=== PATIENT | female | born 1945 | race Caucasian/White ===

== ENCOUNTER 2016-09-01 13:28 | Outpatient (RCR) | payer MEDICARE ==
--- OUTSIDE RECORDS SUMMARY | 2016-06-09 14:57 | XMS REPORT | Continuity of Care Document ---
Author Author [facility] Organization [facility] Address Unknown Phone Unavailable Care Team Providers Care Respiratory Director Name Role Phone JENNIFER SANCHEZ MD PCP Insurance Providers Payer Name Policy Number Subscriber Name Relationship [employer] Gold Choice [id number] Aydin Muller 20 Self / Same As Patient Advance Directives Directive Response Recorded Date/Time Advance Directives No 08/15/15 2:40pm Health Care Power of Hydro Station Supervisor No 08/15/15 2:40pm Organ Donor No 08/15/15 2:40pm Resuscitation Status Full Code 08/15/15 2:40pm Problems Active Problems Medical Problem Onset Date Status Headache Unknown Acute Medications Current Home Medications Medication Dose Units Route Directions Days/Qty Instructions Start Date Acetam/Butalbital/Caffeine/Codeine 1 Cap 1 Each Oral Q 4 - 6 Hrs Prn 08/17/11 Bumetanide 1 Mg 90 02/02/14 Roflumilast 500 Mcg 90 02/02/14 Atorvastatin Calcium 80 Mg 30 02/02/14 Albuterol 8.5 Gm 25 02/02/14 [Symbicort] 30 02/02/14 Tiotropium [place] 1 Inh 90 02/02/14 Sennosides/Docusate Sodium 1 Each 1 Each Oral Twice A Day 08/04/15 Aspirin 81 Mg 81 Mg Oral Daily 08/04/15 Vit C/Ascorbate Ca/Ascorb Sod 500 Mg/15 Ml 1,000 Mg Oral Daily 08/03 Vit D3 & K/[place]ine Hcl/Hops 1 Each 1 Each Oral Daily 08/04/15 Dronabinol 2.5 Mg 2.5 Mg Oral Twice A Day 08/04/15 Iron Polysaccharide Complex 150 Mg 150 Mg Oral Bedtime 08/04/15 Doxylamine Succinate 25 Mg 25 Mg Oral Bedtime 08/04/15 Vit B12/Fa/Pyridoxine Hcl/Aa15 1 Each 1 Each Oral Bedtime 08/04/15 Past Home Medications Medication Directions Ordered Status Nebivolol Hcl 20 Mg Tablet, 20 Mg Oral Daily 08/17/11 Discontinued Rizatriptan Benzoate 10 Mg Tablet, 0 Oral As Directed 09/01/13 Discontinued Nisoldipine 17 Mg Tab.sr.24h, 02/02/14 Discontinued Pantoprazole Sodium 40 Mg Tablet., 02/02/14 Discontinued [Symbicort] , 02/02/14 Discontinued Social History Social History Problem Response Recorded Date/Time Alcohol Use Denies Use 02/02/2014 11:49am Recreational Drug Use No 02/02/2014 11:49am Recent Foreign Travel No 08/13/2015 2:29pm Smoking Status Current Everyday Smoker 08/13/2015 2:23pm Do you dip or chew tobacco? No 08/04/2015 4:15pm Query Response Start Date Stop Date Smoking Status Current Everyday Smoker Hospital Discharge Instructions Current inpatient/outpatient. Discharge instructions are currently unavailable. Plan of Care Prescriptions Functional Status No functional status results. Allergies, Adverse Reactions, Alerts No known allergies. Immunizations Name Given Type Date of Influenza Vaccine 01/31/14 Historical Vital Signs Acute Vital Signs Vital Response Date/Time Temperature (Fahrenheit) 98.0 degrees F (97.6 - 99.5) 10/29/2015 3:58pm Temperature (Calculated Celsius) 36.70189 degrees C (36.4 - 37.5) 10/29/2015 3:58pm Temperature Source Temporal 10/29/2015 3:58pm Pulse Rate (adult) 68 bpm (60 - 90) 10/29/2015 3:58pm Respiratory Rate 16 bpm (12 - 24) 10/29/2015 3:58pm Blood Pressure 187/90 mm Hg 10/29/2015 3:58pm Pain Numeric Pain Scale 0-No Pain 10/29/2015 3:58pm Height (Feet) 5 feet 10/29/2015 3:58pm Height (Inches) 5.00 inches 10/29/2015 3:58pm Height (Calculated Centimeters) 165.874995 cm 10/29/2015 3:58pm Weight (Pounds) 100 pounds 10/29/2015 3:58pm Weight (Ounces) 0.5 oz 10/29/2015 3:58pm Weight (Calculated Grams) 50181.412 gm 10/29/2015 3:58pm Weight (Calculated Kilograms) 45.233104 kilograms 10/29/2015 3:58pm Height 5 ft 5 in Weight 100 lb Body Mass Index 16.6 kg/m^2 Results Pending Laboratory Results Test Name Collection Date/Time Procedures No known history of procedures. Encounters Encounter Location Arrival/Admit Date Discharge/Depart Date Attending Provider Registered Recurring [facility] 10/29/15 2:50pm ERIKA CLIFTON MD Discharged Recurring [facility] 08/04/15 3:54pm 11:59pm ERIKA MIKE MD
[2016-06-09 15:32] VITALS: BP 130/78
[2016-06-22 14:39] VITALS: BP 142/82
[2016-07-06 14:30] VITALS: BP 154/81
[~2016-09-01] VITALS: Ht 165.1 cm; Wt 42.4 kg
[~2016-09-01 13:28] MED LIST: ALBU8.5H2 INH; AMLO10TA2 PO; ASCO10006 PO; ASPI-983 PO; ASPI-999 PO; ATOR80TA75; ATOR80TA76 PO; AZIT250T5 PO; BUDE10.2 IH; BUME1TAB4; BUME2TAB3 PO; CHOL10007 PO; CLOP75TA28; CODE1CAP20 PO; CODE1CAP36 PO; CYAN10006 PO; DARBEPOETIN 40 MCG/ML (ARANESP) 1 ML VIAL SC NR; DARBEPOETIN 40 MCG/ML (ARANESP) 1 ML VIAL SC ONE; DARBEPOETIN 40 MCG/ML (ARANESP) 1 ML VIAL SC SCH; DEXT350P5 PO; DILT240C9 PO; DOXY25TA35 PO; DRON2.5C10 PO; DRON5CAP14 PO; IPRA3AMP IH; IRON150C13 PO; NEBI20TA2 PO; NEBU1EAC2 MC; NFNEB10T PO; NISO17TA3; PANT40TA; PANT40TA3 PO; PRD20T PO; RIZA10TA23 PO; ROFL500T PO; SENN-33 PO; SYMBICORT; TIOT18CA2 INH; VIT1CAPS16 PO; VIT1TABL57 PO; VIT500LI PO
[2016-09-01] MEDS ORDERED: DARBEPOETIN 40 MCG/ML (ARANESP) 1 ML VIAL SC SCH (13:45)
[2016-09-01 14:30] VITALS: BP 133/75
== END 2016-09-07 | disposition home or self-care (01) ==
LOC: SDC 13:28
PROVIDERS: ATTEND Internal Medicine Nephrology
DX: D63.1 Anemia in chronic kidney disease (principal); N18.4 Chronic kidney disease, stage 4 (severe)
CPT/HCPCS: 96372

== ENCOUNTER 2016-12-08 14:10 | Outpatient (RCR) | payer MEDICARE ==
[2016-09-15 14:40] VITALS: BP_SYST 149; BP_SYST 161; BP_DIAS 78; BP_DIAS 87
[2016-09-15] MEDS: DARBEPOETIN 40 MCG/ML (ARANESP) 1 ML VIAL SC SCH (15:18)
[2016-09-29 14:30] VITALS: BP 159/83
[2016-09-29] MEDS: DARBEPOETIN 40 MCG/ML (ARANESP) 1 ML VIAL SC SCH (14:40)
[2016-11-24 14:33] VITALS: BP 139/79
[2016-11-24] MEDS: DARBEPOETIN 40 MCG/ML (ARANESP) 1 ML VIAL SC SCH (14:53)
[~2016-12-08] VITALS: Ht 165.1 cm; Wt 42.4 kg
[~2016-12-08 14:10] MED LIST changes: -DARBEPOETIN 40 MCG/ML (ARANESP) 1 ML VIAL SC NR; -DARBEPOETIN 40 MCG/ML (ARANESP) 1 ML VIAL SC ONE; -DARBEPOETIN 40 MCG/ML (ARANESP) 1 ML VIAL SC SCH
[2016-12-08 14:30] VITALS: BP 145/87
[2016-12-08] MEDS: DARBEPOETIN 40 MCG/ML (ARANESP) 1 ML VIAL SC SCH (14:40)
== END 2016-12-14 | disposition home or self-care (01) ==
LOC: SDC 14:10
PROVIDERS: ATTEND Internal Medicine Nephrology
DX: N18.4 Chronic kidney disease, stage 4 (severe) (principal); D63.1 Anemia in chronic kidney disease
CPT/HCPCS: 96372

== ENCOUNTER 2017-05-20 14:07 | Outpatient (RCR) | payer MEDICARE ==
[2017-02-28 14:35] VITALS: BP 134/80
[2017-02-28] MEDS: DARBEPOETIN 40 MCG/ML (ARANESP) 1 ML VIAL SC SCH (15:25)
[2017-03-15 13:50] VITALS: BP 140/73
[2017-03-15] MEDS: DARBEPOETIN 40 MCG/ML (ARANESP) 1 ML VIAL SC SCH (14:42)
[2017-03-30 14:18] VITALS: BP 154/85
[2017-03-30] MEDS: DARBEPOETIN 40 MCG/ML (ARANESP) 1 ML VIAL SC SCH (14:46)
[2017-04-13] MEDS: DARBEPOETIN 25 MCG/ML (ARANESP) 1 ML HOSPITAL SC SCH (14:54)
[2017-04-13 14:55] VITALS: BP 183/92
[2017-04-27 14:30] VITALS: BP 172/103
[2017-04-29 14:15] VITALS: BP 161/85
[2017-04-29] MEDS: DARBEPOETIN 25 MCG/ML (ARANESP) 1 ML HOSPITAL SC SCH (14:49)
[~2017-05-20] VITALS: Ht 165.1 cm; Wt 42.4 kg
[~2017-05-20 14:07] MED LIST changes: +AZIT250T12 PO; -AZIT250T5 PO
[2017-05-20 14:32] VITALS: BP 164/85
[2017-05-20] MEDS: DARBEPOETIN 25 MCG/ML (ARANESP) 1 ML HOSPITAL SC SCH (14:42)
== END 2017-05-29 | disposition home or self-care (01) ==
LOC: SDC 14:07
PROVIDERS: ATTEND Internal Medicine Nephrology
DX: N18.4 Chronic kidney disease, stage 4 (severe) (principal); D63.1 Anemia in chronic kidney disease
CPT/HCPCS: 96372